=== PATIENT | male | born 1955 | race Caucasian/White ===

== ENCOUNTER 2019-03-06 18:42 | Emergency (ER) | payer OTHER, SELFPAY ==
[2019-03-06 18:51] VITALS: BP 112/66; PULSE 71; RESP 20; TEMP 36.9; O2SAT 100
--- NOTE | 2019-03-06 19:18 | ED.URI ---
HPI - URI/Sore Throat General Chief Complaint: Upper Respiratory Infection Stated Complaint: COUGH Time Seen by Provider: 03/06/19 19:11 Source: patient, family and RN notes reviewed Mode of arrival: ambulatory Limitations: no limitations History of Present Illness HPI Narrative: Patient presents today with a 4-day history of nonproductive cough, congestion, fatigue. Denies fever, sweats or chills, headache, sore throat, ear pain. Denies history of asthma or COPD. He has been taking Mucinex with some relief. Reports was recently ill with similar symptoms. MD elicited complaint: cough Related Data Home Medications Medication Instructions Recorded Confirmed aspirin [Aspir-Low] 81 mg PO DAILY 12/12/18 03/06/19 atorvastatin [Lipitor] 40 mg PO DAILY 12/12/18 03/06/19 levothyroxine [Synthroid] 200 mcg PO DAILY 12/12/18 03/06/19 sitagliptin [Januvia] 100 mg PO DAILY 12/12/18 03/06/19 ticagrelor [Brilinta] 90 mg PO Q12H 12/12/18 03/06/19 metformin 1,000 mg tablet 1,000 mg PO BID 01/25/19 03/06/19 metoprolol succinate 25 mg 25 mg PO DAILY 01/25/19 03/06/19 tablet,extended release 24 hr amlodipine [Norvasc] 5 mg PO DAILY 03/06/19 03/06/19 empagliflozin [Jardiance] 10 mg PO DAILY 03/06/19 03/06/19 escitalopram oxalate [Lexapro] 10 mg PO DAILY 03/06/19 03/06/19 insulin glargine [Lantus Solostar 26 unit SUBCUT DAILY 03/06/19 03/06/19 U-100 Insulin] Allergies Allergy/AdvReac Type Severity Reaction Status Date / Time erythromycin base Allergy Mild Hives / Verified 03/06/19 18:59 Red Face Penicillins Allergy Mild Anaphylactic Verified 03/06/19 18:59 Shock Quinolones Allergy Mild Confusion Verified 03/06/19 18:59 Contrast Media Allergy Severe . Uncoded 10/05/18 10:36 Review of Systems Review of Systems: Narrative: CONSTITUTIONAL: Denies body aches, fever, chills, or sweats.+ Fatigue EYES: Denies visual changes, redness, or discharge. ENT: Denies rhinorrhea, sore throat, or otalgia.+ Congestion CARDIOVASCULAR: Denies chest pain, palpitations, or edema. RESPIRATORY: Denies dyspnea.+ Nonproductive cough GASTROINTESTINAL: Denies abdominal pain, nausea, vomiting, or diarrhea. GENITOURINARY: Denies dysuria or hematuria. SKIN: Denies rash, itching, or wounds. MUSCULOSKELETAL: Denies back pain, joint pain, or myalgia. NEUROLOGIC: Denies headache, numbness, tingling, or weakness. PSYCH: Denies depression or anxiety. [facility] Past Medical History Medical History (Updated 03/07/19 @ 00:00 by [facility] Daemsteffany) Anxiety HTN (hypertension) Hypercholesterolemia Hypothyroidism ELIEZER (obstructive sleep apnea) Type 2 diabetes mellitus without complication, without long-term current use of insulin Surgical History Surgical History (Updated 01/25/19 @ 08:29 by Faviola Freeman CMA) H/O heart bypass surgery H/O removal of cyst H/O wrist surgery screw placed History of cholecystectomy S/P CABG x 3 Family History Family History (Updated 01/25/19 @ 08:25 by Faviola Freeman CMA) Father Acute myocardial infarction Congestive heart failure Hypertension CAD (coronary artery disease) Mother Hypertension Breast cancer Sibling Hypertension Diabetes mellitus Social History Social History (Updated 01/25/19 @ 09:03 by Faviola Freeman CMA) Smoking packs per day: 1 Smoking cigarettes per day: 20.0 Years smoked: 44 Smoking pack-years: 44.00 Smoking status: Former smoker Tobacco type: cigarettes Second hand tobacco smoke exposure: No Smoking end date: 09/07/18 Additional smoking assessment comments: states he quit when just prior to his bipass surgery last September 2018 Alcohol intake: current Comments At time of signature, I have reviewed and agree with nursing past medical, surgical, social and family history unless otherwise noted. Please see nursing chart for further information. There is no relevant family history pertinent to the presenting complaint Exam Narrative: Exam Narrati
== END 2019-03-06 19:21 | disposition home or self-care (01) ==
PROVIDERS: Emergency Provider Nurse Practitioner; PCP Internal Medicine
DX: J06.9 Acute upper respiratory infection, unspecified (principal); Z87.891 Personal history of nicotine dependence; F41.9 Anxiety disorder, unspecified; I10 Essential (primary) hypertension; E78.00 Pure hypercholesterolemia, unspecified; G47.33 Obstructive sleep apnea (adult) (pediatric); E11.9 Type 2 diabetes mellitus without complications; Z79.4 Long term (current) use of insulin; Z95.5 Presence of coronary angioplasty implant and graft
CPT/HCPCS: 99213; G0463

== ENCOUNTER 2020-05-15 08:31 | Outpatient (CLI) | payer OTHER, SELFPAY ==
[2020-05-15 09:09] LABS: Basophils Percent Auto 0.6 % (0.2-1.2); Eosinophils Absolute Auto 0.2 K/mm3 (0-0.3); Eosinophils Percent Auto 3.1 % (0-4.4); Hematocrit 43.6 % (42.0-52.0); Hemoglobin 14.2 g/dL (14.0-18.0); Immature Granulocyte Absolute 0.03 K/mm3 (0.00-0.031); Immature Granulocyte Percent A 0.6 % (0-0.5); Lymphocytes Absolute Auto 1.22 K/mm3 (0.9-3.2); Lymphocytes Percent Auto 23.5 % (18.3-44.2); Mean Corpuscular HGB Conc 32.6 g/dl (32-36); Mean Corpuscular Hemoglobin 30.1 pg (26-34); Mean Corpuscular Volume 92.6 fl (80-100); Mean Platelet Volume 10.1 fl (7.4-10.4); Monocytes Absolute Auto 0.6 K/mm3 (0.1-0.6); Monocytes Percent Auto 11.5 % (2.6-8.5); Neutrophils Absolute Auto 3.2 K/mm3 (1.3-6.7); Neutrophils Percent Auto 60.7 % (45.5-73.1); Platelet Count Result 150 k/mm3 (150-375); Red Blood Count 4.71 M/mm3 (4.6-6.20); Red Cell Distribution Width 12.8 % (11.5-14.5); White Blood Count 5.2 K/mm3 (4.5-10.0)
[2020-05-15 09:32] LABS: Alanine Aminotransferase 19 U/L (4-50); Albumin Level 4.9 g/dL (3.5-5.1); Alkaline Phosphatase 60 U/L (38-126); Anion Gap 10 mmol/L (8-16); Aspartate Amino Transferase 18 U/L (17-59); Bilirubin,Total 0.7 mg/dL (0.2-1.3); Blood Urea Nitrogen 20 mg/dL (9-20); Calcium 9.8 mg/dL (8.4-10.2); Carbon Dioxide 24 mmol/L (22-30); Chloride 105 mmol/L (98-107); Cholesterol 132 mg/dL (0-200); Estimated Glomerular Filt Rate > 60; Glucose 166 mg/dL (75-110); HDL Direct 42 mg/dL; Potassium 4.1 mmol/L (3.4-5.0); Sodium 139 mmol/L (137-145); Triglycerides 136 mg/dL (<150)
[2020-05-15 09:40] LABS: Hemoglobin A1C 7.6 % (<5.7)
[2020-05-15 09:43] LABS: LDL Cholesterol Direct 58 mg/dL
[2020-05-15 10:02] LABS: Prostate Specific Antigen 0.4 ng/mL (< OR = 4.0)
== END 2020-05-15 08:32 | disposition home or self-care (01) ==
PROVIDERS: PCP Internal Medicine; Visit Provider Nurse Practitioner
DX: E78.00 Pure hypercholesterolemia, unspecified (principal); Z12.5 Encounter for screening for malignant neoplasm of prostate; I10 Essential (primary) hypertension; E11.9 Type 2 diabetes mellitus without complications; E03.9 Hypothyroidism, unspecified
CPT/HCPCS: 36415; 80053; 80061; 83036; 84153; 84443; 85025; G0103

== ENCOUNTER 2020-06-03 10:03 | Emergency (ER) | payer OTHER, SELFPAY ==
[2020-06-03 10:15] VITALS: BP 127/64; PULSE 81; RESP 17; TEMP 36.4; O2SAT 99
[2020-06-03 11:22] VITALS: BP 125/92; PULSE 80; RESP 16; O2SAT 99
--- NOTE | 2020-06-03 12:06 | PC.NURSE ---
Notified poison control and they advise to monitor for drowsiness and [employer] depression. No other recommendations at this time.
--- NOTE | 2020-06-03 12:11 | ED.GENADULT ---
HPI - General Adult General Chief complaint: Unspecified <SHARAN Weber Last Filed: 06/03/20 12:18> Stated complaint: accidental medication ingestion <SHARAN Weber Last Filed: 06/03/20 12:18> Time Seen by Provider: 06/03/20 11:12 <SHARAN Weber Last Filed: 06/03/20 12:18> Source: patient <SHARAN Weber Last Filed: 06/03/20 12:18> Mode of arrival: ambulatory <SHARAN Weber Last Filed: 06/03/20 12:18> Limitations: no limitations <SHARAN Weber Last Filed: 06/03/20 12:18> History of Present Illness HPI narrative: This is a 64 year old male that presents to the ER for accidental medication ingestion this morning. Reports around 7 AM he accidentally took his son's medications. Reports his had set out his medications and his sons. He accidentally took his sons. He has no complaints otherwise. No thoughts of harming himself. He has given us the list of medications. Poison control has been called. <SHARAN Weber Last Filed: 06/03/20 12:18> Related Data Allergies/adverse reactions: Allergies Allergy/AdvReac Type Severity Reaction Status Date / Time erythromycin base Allergy Unknown Rash Verified 06/03/20 11:21 iodine Allergy Unknown Rash Verified 06/03/20 11:21 levofloxacin Allergy Unknown Rash Verified 06/03/20 11:21 Penicillins Allergy Unknown Rash Verified 06/03/20 11:21 <SHARAN Weber Last Filed: 06/03/20 12:18> Review of Systems Review of Systems: Narrative: CONSTITUTIONAL: Denies fever CARDIOVASCULAR: Denies chest pain RESPIRATORY: Denies dyspnea. GASTROINTESTINAL: Denies vomiting <SHARAN Weber Last Filed: 06/03/20 12:18> All systems reviewed & are unremarkable except as noted in HPI and below <SHARAN Weber Last Filed: 06/03/20 12:18> [facility] Past Medical History Medical History: Medical History (Updated 06/03/20 @ 12:17 by Latoya Dave PA-C) History of diabetes mellitus History of hyperlipidemia History of hypertension <Latoya Dave PA-C - Last Filed: 06/03/20 12:18> Family History Family History: Family History (Updated 10/11/17 @ 14:58 by DOCTOR UNKNOWN) Mother Hypertension Father Family history of coronary artery disease <Latoya Dave PA-C - Last Filed: 06/03/20 12:18> Social History Social History: Social History Smoking status: Former smoker Smoking end date: 02/07/18 Alcohol intake: current <Latoya Dave PA-C - Last Filed: 06/03/20 12:18> Exam Narrative: Exam Narrative: GENERAL: Well-appearing, well-nourished, and in no acute distress. HEAD: Normocephalic, atraumatic. EYES: PERRLA and EOMI. ENT: Nares clear, no rhinorrhea or epistaxis. Mucous membranes moist. Oropharynx without tonsillar hypertrophy exudate or other lesions. Bilateral TMs pearly neves non-bulging NECK: Supple. No adenopathy or masses. CHEST: Clear to auscultation. No respiratory distress. No wheezes rales or rhonchi HEART: Regular rate and rhythm. No murmur heard. Normal peripheral pulses. EXTREMITIES: Normal range of motion. No edema. SKIN: Warm, dry, no rash. NEURO: No focal deficits. Alert and oriented x3. Cranial nerves II through XII grossly intact PSYCH: Normal mood and affect <Latoya Dave PA-C - Last Filed: 06/03/20 12:18> Course Vital Signs Vital signs: Vital Signs Temperature 36.4 C 06/03/20 10:15 Pulse Rate 81 06/03/20 10:15 Respiratory Rate 17 06/03/20 10:15 Blood Pressure 127/64 06/03/20 10:15 Pulse Oximetry 99 06/03/20 10:15 Temperature 36.4 C 06/03/20 10:15 Pulse Rate 80 06/03/20 11:22 Respiratory Rate 16 06/03/20 11:22 Blood Pressure 125/92 H 06/03/20 11:22 Pulse Oximetry 99 06/03/20 11:22 <Latoya Dave PA-C - Last Filed: 06/03/20 12:18> Vital Signs Temperature 36.4 C 06/03/20 10:15 Pulse Rate 81 06/03/20 10:15 Respiratory Rate 17 04
== END 2020-06-03 12:27 | disposition home or self-care (01) ==
PROVIDERS: Emergency Provider Emergency Medicine; PCP Internal Medicine
DX: T50.911A Poisoning by multiple unspecified drugs, medicaments and biological substances, accidental (unintentional), initial encounter (principal); E11.9 Type 2 diabetes mellitus without complications; E78.5 Hyperlipidemia, unspecified; I10 Essential (primary) hypertension; Z87.891 Personal history of nicotine dependence
CPT/HCPCS: 99281

== ENCOUNTER 2022-12-24 12:52 | Emergency (ER) | payer MEDICARE, SELFPAY ==
[2022-12-24 13:05] VITALS: BP 131/81; PULSE 83; RESP 16; TEMP 36.4; O2SAT 99
--- NOTE | 2022-12-24 13:13 | ED.URI ---
HPI - URI/Sore Throat General Chief Complaint: Upper Respiratory Infection Stated Complaint: Sore Throat;Congestion Time Seen by Provider: 12/24/22 13:08 Source: patient and RN notes reviewed Mode of arrival: ambulatory Limitations: no limitations History of Present Illness HPI Narrative: Patient presents today with a 2 day history of sore throat, body aches, sweats, congestion, cough. Denies fever or shortness of breath. Currently rates his pain 1/10 and has been taking Mucinex with some relief. History of ELIEZER, type 2 diabetes. He is a former smoker. He has had his RSV, COVID, and flu shots. States his is having thyroid surgery next week Related Data Home Medications Medication Instructions Recorded Confirmed aspirin 81 mg tablet,delayed 81 mg PO DAILY 12/12/18 12/24/22 release (Aspir-Low) metoprolol succinate 25 mg 25 mg PO DAILY 01/25/19 12/24/22 tablet,extended release 24 hr amlodipine 5 mg tablet (Norvasc) 5 mg PO DAILY 03/06/19 12/24/22 empagliflozin 5 mg-metformin 1,000 1 tablet PO BID 05/07/22 12/24/22 mg tablet (Synjardy) semaglutide 1 mg/dose (2 mg/1.5 1 mg subcut WEEKLY 05/07/22 12/24/22 mL) subcutaneous pen injector Allergies Allergy/AdvReac Type Severity Reaction Status Date / Time erythromycin base Allergy Mild Hives / Verified 12/24/22 13:02 Red Face Penicillins Allergy Mild Anaphylactic Verified 12/24/22 13:02 Shock Quinolones Allergy Mild Confusion Verified 12/24/22 13:02 iodine Allergy Unknown Rash Verified 12/24/22 13:02 levofloxacin Allergy Unknown Rash Verified 12/24/22 13:02 Contrast Media Allergy Severe Other Uncoded 12/24/22 13:02 Review of Systems Review of Systems: CONSTITUTIONAL: Denies fever, chills.+ body aches, sweats EYES: Denies visual changes, redness, or discharge. ENT: Denies rhinorrhea, or otalgia.+ congestion, sore throat CARDIOVASCULAR: Denies chest pain, palpitations, or edema. RESPIRATORY: Denies dyspnea.+ cough GASTROINTESTINAL: Denies abdominal pain, nausea, vomiting, or diarrhea. GENITOURINARY: Denies dysuria or hematuria. SKIN: Denies rash, itching, or wounds. MUSCULOSKELETAL: Denies back pain, joint pain, or myalgia. NEUROLOGIC: Denies headache, numbness, tingling, or weakness. PSYCH: Denies depression or anxiety. [facility] Past Medical History Medical History Anxiety History of diabetes mellitus History of hyperlipidemia History of hypertension HTN (hypertension) Hypercholesterolemia Hypothyroidism ELIEZER (obstructive sleep apnea) Type 2 diabetes mellitus without complication, without long-term current use of insulin Surgical History Surgical History H/O heart bypass surgery H/O removal of cyst H/O wrist surgery screw placed History of cholecystectomy S/P CABG x 3 Family History Family History Father Acute myocardial infarction Congestive heart failure Hypertension CAD (coronary artery disease) Mother Hypertension Breast cancer Sibling Hypertension Diabetes mellitus Mother Hypertension Father Family history of coronary artery disease Social History Social History Years smoked: 40 Smoking status: Former smoker Tobacco type: cigarettes Second hand tobacco smoke exposure: No Smoking end date: 10/08/20 Alcohol intake: never Alcohol use details: rarely Substance use type: marijuana Last use: 25 + years ago Lack of Transportation: No Lack of Food: Never True Current Housing: I Have Housing Concerned About Future Housing: No Difficulty Paying Gas/Electric Bills: No Difficulty Paying for Meds: No Currently Unemployed: No Education: High School Diploma/GED Difficulty w/ Childcare or Family Care: No Comments At time of signature, I fuller
== END 2022-12-24 13:53 | disposition home or self-care (01) ==
PROVIDERS: Emergency Provider Nurse Practitioner; PCP Internal Medicine
DX: J06.9 Acute upper respiratory infection, unspecified (principal); Z20.822 Contact with and (suspected) exposure to COVID-19; Z87.891 Personal history of nicotine dependence; E11.9 Type 2 diabetes mellitus without complications; E78.5 Hyperlipidemia, unspecified; I10 Essential (primary) hypertension; E78.00 Pure hypercholesterolemia, unspecified; E03.9 Hypothyroidism, unspecified; Z79.82 Long term (current) use of aspirin; Z79.84 Long term (current) use of oral hypoglycemic drugs
CPT/HCPCS: 87426; 87804; 99213; C9803; G0463

== ENCOUNTER 2023-05-11 09:59 | Outpatient (CLI) | payer MEDICARE, SELFPAY ==
[2023-05-11 12:12] LABS: Basophils Percent Auto 0.6 % (0.2-1.2); Eosinophils Absolute Auto 0.1 K/mm3 (0-0.3); Eosinophils Percent Auto 2.6 % (0-4.4); Hematocrit 43.5 % (42.0-52.0); Hemoglobin 14.1 g/dL (14.0-18.0); Immature Granulocyte Absolute 0.02 K/mm3 (0.00-0.031); Immature Granulocyte Percent A 0.4 % (0-0.5); Lymphocytes Absolute Auto 1.04 K/mm3 (0.9-3.2); Lymphocytes Percent Auto 21.1 % (18.3-44.2); Mean Corpuscular HGB Conc 32.4 g/dl (32-36); Mean Corpuscular Hemoglobin 30.1 pg (26-34); Mean Corpuscular Volume 92.9 fl (80-100); Mean Platelet Volume 10.7 fl (7.4-10.4); Monocytes Absolute Auto 0.5 K/mm3 (0.1-0.6); Monocytes Percent Auto 10.1 % (2.6-8.5); Neutrophils Absolute Auto 3.2 K/mm3 (1.3-6.7); Neutrophils Percent Auto 65.2 % (45.5-73.1); Platelet Count Result 151 k/mm3 (150-375); Red Blood Count 4.68 M/mm3 (4.6-6.20); Red Cell Distribution Width 13.4 % (11.5-14.5); White Blood Count 4.9 K/mm3 (4.5-10.0)
[2023-05-12 00:10] LABS: Alanine Aminotransferase 29 U/L (6-50); Albumin Level 4.9 g/dL (3.5-5.1); Alkaline Phosphatase 67 U/L (38-126); Anion Gap 11 mmol/L (4-12); Aspartate Amino Transferase 21 U/L (17-59); Bilirubin,Total 1.1 mg/dL (0.2-1.3); Blood Urea Nitrogen 18 mg/dL (9-20); Calcium 9.6 mg/dL (8.4-10.2); Carbon Dioxide 23 mmol/L (22-30); Chloride 103 mmol/L (98-107); Cholesterol 127 mg/dL (0-200); Estimated Glomerular Filt Rate > 60; Glucose 178 mg/dL (65-110); HDL Direct 35 mg/dL; Potassium 4.4 mmol/L (3.4-5.0); Sodium 137 mmol/L (137-145); Triglycerides 205 mg/dL (<150)
[2023-05-12 00:21] LABS: LDL Cholesterol Direct 58 mg/dL
[2023-05-12 00:30] LABS: Hemoglobin A1C 7.2 % (<5.7)
[2023-05-12 00:41] LABS: Prostate Specific Antigen 0.4 ng/mL (< OR = 4.0)
== END 2023-05-11 10:00 | disposition home or self-care (01) ==
PROVIDERS: PCP Internal Medicine; Visit Provider Nurse Practitioner
DX: Z12.5 Encounter for screening for malignant neoplasm of prostate (principal); E03.9 Hypothyroidism, unspecified; E11.9 Type 2 diabetes mellitus without complications
CPT/HCPCS: 36415; 80053; 80061; 83036; 84153; 84443; 85025; G0103

== ENCOUNTER 2023-07-19 02:27 | Day surgery (SDC) | payer MEDICARE, SELFPAY ==
[2023-07-01 12:48] VITALS: BMI 35.9
[2023-07-19 07:23] VITALS: BP 130/74; PULSE 83; RESP 20; TEMP 36.3; O2SAT 100
[2023-07-19] MEDS: LACTATED RINGERS 1,000 ML 150 ML IV CONT (07:31)
[2023-07-19 07:38] LABS: Glucose Point of Care 167 mg/dl (65-105)
--- NOTE | 2023-07-19 08:15 | WPDANESEPPF ---
Anes - Initial Pre Proc Eval Procedure: Operation Date: 07/19/23 08:30 Proposed Procedures p Screening Colonoscopy - Juan Costello DO Date/Time: 07/19/23 08:15 Surgeon: Juan Costello DO Pre Op Diagnosis: Screening for malignant neoplasm of colon Patient Data Age: 67 Gender: M Height: 1.78 m Weight: 109.1 kg Last Vital Signs Temp 97.3 F L 07/19/23 07:23 Pulse 83 07/19/23 07:23 Resp 20 07/19/23 07:23 BP 130/74 07/19/23 07:23 Pulse Ox 100 07/19/23 07:23 O2 Del Method Room Air 07/19/23 07:23 Allergies Allergy/AdvReac Type Severity Reaction Status Date / Time erythromycin base Allergy Mild Hives / Verified 07/19/23 07:21 Red Face Penicillins Allergy Mild Anaphylactic Verified 07/19/23 07:21 Shock Quinolones Allergy Mild Confusion Verified 07/19/23 07:21 iodine Allergy Unknown Rash Verified 07/19/23 07:21 levofloxacin Allergy Unknown Rash Verified 07/19/23 07:21 Contrast Media Allergy Severe Other Uncoded 07/19/23 07:21 Home Medications Medication Instructions Recorded Confirmed Type aspirin 81 mg tablet,delayed 81 mg PO DAILY 12/12/18 07/01/23 History release (Aspir-Low) levothyroxine 200 mcg tablet 200 mcg PO DAILY #30 tabs 12/29/18 07/01/23 Rx (Synthroid) metoprolol succinate 25 mg 25 mg PO DAILY 01/25/19 07/01/23 History tablet,extended release 24 hr amlodipine 5 mg tablet (Norvasc) 5 mg PO DAILY 03/06/19 07/01/23 History atorvastatin 40 mg tablet (Lipitor) 40 mg PO DAILY #30 tabs 07/01/21 07/01/23 Rx empagliflozin 5 mg-metformin 1,000 1 tablet PO BID 05/07/22 07/01/23 History mg tablet (Synjardy) semaglutide 1 mg/dose (2 mg/1.5 1 mg subcut WEEKLY 05/07/22 07/01/23 History mL) subcutaneous pen injector escitalopram oxalate 20 mg tablet 20 mg PO DAILY #90 tabs 10/13/22 07/01/23 Rx (Lexapro) Laboratory Tests 07/19/23 07:35 POC Capillary Glucose 167 H mg/dl (65-105) Patient hx anesthesia problems: none Family hx anesthesia problems: none Results Review: All pre-operative results and documents have been reviewed as part of the pre-operative evaluation. [facility] Past Medical History Medical History Anxiety History of diabetes mellitus History of hyperlipidemia History of hypertension HTN (hypertension) Hypercholesterolemia Hypothyroidism ELIEZER (obstructive sleep apnea) Type 2 diabetes mellitus without complication, without long-term current use of insulin Surgical History Surgical History H/O heart bypass surgery H/O removal of cyst H/O wrist surgery screw placed History of cholecystectomy S/P CABG x 3 Family History Family History Father Acute myocardial infarction Congestive heart failure Hypertension CAD (coronary artery disease) Mother Hypertension Breast cancer Sibling Hypertension Diabetes mellitus Mother Hypertension Father Family history of coronary artery disease Social History Social History Years smoked: 40 Smoking status: Never smoker Tobacco type: cigarettes Second hand tobacco smoke exposure: No Smoking end date: 10/08/20 Alcohol intake: never Alcohol use details: rarely Substance use type: marijuana Last use: 25 + years ago Lack of Transportation: No Lack of Food: Never True Current Housing: I Have Housing Concerned About Future Housing: No Difficulty Paying Gas/Electric Bills: No Difficulty Paying for Meds: No Currently Unemployed: No Education: High School Diploma/GED Difficulty w/ Childcare or Family Care: No Living arrangements: other Additional living arrangements comments: with gena Smyth Final PreProcedure Day of Procedure 07/19/23 08:15 Patient weight: obese Heart: regular rate and r
--- NOTE | 2023-07-19 08:34 | PM.IMHP ---
H&P: HPI History of Present Illness Date/Time: 07/19/23 08:34 Chief Complaint: history of colon polyps Narrative: this is a 67-year-old man who presents for colonoscopy. He states his last colonoscopy was at least 8 or 10 years ago. He thinks polyps were removed at that time. He denies any hematochezia or melena. He denies family history of colon cancer Review of Systems Review of Systems: All systems reviewed & are unremarkable except as noted in HPI and below Constitutional: Constitutional: Denies chills, Denies fever(s), Denies headache(s) and Denies weight loss Eyes: Eyes: Denies change in vision ENT: Denies dizziness, Denies headache(s), Denies neck mass and Denies throat swelling Cardiovascular: Cardiovascular: Denies chest pain, Denies lightheadedness and Denies dyspnea Respiratory: Respiratory: Denies cough, Denies dyspnea and Denies wheezing Gastrointestinal: Gastrointestinal: Denies abdominal pain, Denies change in bowel habits, Denies nausea and Denies vomiting Genitourinary: Genitourinary: Denies hematuria and Denies dysuria Musculoskeletal: Musculoskeletal: Reports as per HPI Integumentary/Breasts: Skin/Breast: Reports as per HPI Neurologic: Denies dizziness and Denies headache(s) Allergic/Immunologic: Allergic/Immunologic: Denies throat swelling and Denies wheezing PMF Past Medical History Medical History Anxiety History of diabetes mellitus History of hyperlipidemia History of hypertension HTN (hypertension) Hypercholesterolemia Hypothyroidism ELIEZER (obstructive sleep apnea) Type 2 diabetes mellitus without complication, without long-term current use of insulin Surgical History Surgical History H/O heart bypass surgery H/O removal of cyst H/O wrist surgery screw placed History of cholecystectomy S/P CABG x 3 Family History Family History Father Acute myocardial infarction Congestive heart failure Hypertension CAD (coronary artery disease) Mother Hypertension Breast cancer Sibling Hypertension Diabetes mellitus Mother Hypertension Father Family history of coronary artery disease Social History Social History Years smoked: 40 Smoking status: Never smoker Tobacco type: cigarettes Second hand tobacco smoke exposure: No Smoking end date: 10/08/20 Alcohol intake: never Alcohol use details: rarely Substance use type: marijuana Last use: 25 + years ago Lack of Transportation: No Lack of Food: Never True Current Housing: I Have Housing Concerned About Future Housing: No Difficulty Paying Gas/Electric Bills: No Difficulty Paying for Meds: No Currently Unemployed: No Education: High School Diploma/GED Difficulty w/ Childcare or Family Care: No Living arrangements: other Additional living arrangements comments: with sp Meds Home Medications and Allergies Home Medications Medication Instructions Recorded Confirmed Type aspirin 81 mg tablet,delayed 81 mg PO DAILY 12/12/18 07/01/23 History release (Aspir-Low) levothyroxine 200 mcg tablet 200 mcg PO DAILY #30 tabs 12/29/18 07/01/23 Rx (Synthroid) metoprolol succinate 25 mg 25 mg PO DAILY 01/25/19 07/01/23 History tablet,extended release 24 hr amlodipine 5 mg tablet (Norvasc) 5 mg PO DAILY 03/06/19 07/01/23 History atorvastatin 40 mg tablet (Lipitor) 40 mg PO DAILY #30 tabs 07/01/21 07/01/23 Rx empagliflozin 5 mg-metformin 1,000 1 tablet PO BID 05/07/22 07/01/23 History mg tablet (Synjardy) semaglutide 1 mg/dose (2 mg/1.5 1 mg subcut WEEKLY 05/07/22 07/01/23 History mL) subcutaneous pen injector escitalopram oxalate 20 mg tablet 20 mg PO DAILY #90 tabs 10/13/22 07/01/23 Rx (Lexapro) Allergies Allergy/AdvReac Type Severi
[2023-07-19 09:00] VITALS: BP 96/66; PULSE 84; RESP 12; O2SAT 97
[2023-07-19 09:15] VITALS: BP 97/65; PULSE 84; RESP 23; O2SAT 97
[2023-07-19 09:25] VITALS: BP 133/84; PULSE 77; RESP 20; O2SAT 99
== END 2023-07-19 09:34 | disposition home or self-care (01) ==
PROVIDERS: PCP Internal Medicine; Visit Provider Surgery
PROC: 0DJD8ZZ Inspection of Lower Intestinal Tract, Via Natural or Artificial Opening Endoscopic (ICD-10-PCS; CPT 45378; principal; 2023-07-19 08:30)
DX: Z12.11 Encounter for screening for malignant neoplasm of colon (principal); K57.30 Diverticulosis of large intestine without perforation or abscess without bleeding; Z86.010 Personal history of colon polyps; I10 Essential (primary) hypertension; E11.9 Type 2 diabetes mellitus without complications; E78.00 Pure hypercholesterolemia, unspecified; E03.9 Hypothyroidism, unspecified; G47.33 Obstructive sleep apnea (adult) (pediatric); Z95.1 Presence of aortocoronary bypass graft; Z87.891 Personal history of nicotine dependence; Z79.82 Long term (current) use of aspirin; Z79.84 Long term (current) use of oral hypoglycemic drugs; Z79.85 Long-term (current) use of injectable non-insulin antidiabetic drugs; E66.9 Obesity, unspecified; Z68.34 Body mass index [BMI] 34.0-34.9, adult
CPT/HCPCS: G0105; 82948; J2704; J7120